=== PATIENT | male | born 1965 | race Two or more races ===

== ENCOUNTER 2017-03-03 10:33 | Emergency (ER) | payer MEDICARE ==
[~2017-03-03] VITALS: Ht 172.7 cm; Wt 61.2 kg
[2017-03-03 10:52] VITALS: BP 124/79
[2017-03-03] MEDS ORDERED: FLUORESCEIN SOD 1 MG TEST STRIP LEFTEYE ONE (11:15)
[2017-03-03] MEDS ORDERED: TETRACAINE HCL 0.5% OPTH(EYE) SOLN 4ML LEFTEYE ONE (11:15)
== END 2017-03-03 11:57 | disposition home or self-care (01) ==
LOC: ER 10:33
DX: S05.02XA Injury of conjunctiva and corneal abrasion without foreign body, left eye, initial encounter (principal); X58.XXXA Exposure to other specified factors, initial encounter; Y93.89 Activity, other specified; Y99.0 Civilian activity done for income or pay; Y92.69 Other specified industrial and construction area as the place of occurrence of the external cause